=== PATIENT | female | born 1975 | race Hispanic/Latino ===

== ENCOUNTER 2018-04-21 14:02 | Emergency (ER) | payer OTHER ==
[2018-04-21] MEDS ORDERED: Naproxen 500 MG TAB PO STA (14:26)
--- NOTE | 2018-04-21 14:29 | ED PDOC ---
Lower Extremity Pain/Injury Time Seen by Provider: 04/21/18 14:15 Chief Complaint (Nursing): Lower Extremity Problem/Injury Chief Complaint (Provider): Left knee pain History Per: Patient History/Exam Limitations: no limitations Onset/Duration Of Symptoms: Hrs (12x hours) Current Symptoms Are (Timing): Still Present Additional Complaint(s): 43 year old female with no past medical history presents to the ED for an evaluation of left knee pain since last night, as if something "popped". Patient denies taking medication for the pain. Otherwise: (-) previous injuries or surgeries to left knee, (-) associated symptoms, (-) fever, (-) falls, (-) trauma (-) foot swelling (-) calf tenderness (-) use of hormonal therapy (-) FHx of blood clot (-) prolonged immobolity (-) chest pain (-) cough/SOB. Last menstrual period: 03/28/2018. PMD: Unsure of name. Past Medical History Reviewed: Historical Data, Nursing Documentation, Vital Signs Vital Signs: Last Vital Signs Temp 98.6 F 04/21/18 14:11 Pulse 55 L 04/21/18 14:11 Resp 16 04/21/18 14:11 BP 136/73 04/21/18 14:11 Pulse Ox 100 04/21/18 14:11 - Medical History PMH: No Chronic Diseases - Surgical History Surgical History: No Surg Hx - Family History Family History: States: No Known Family Hx - Social History Current smoker - smoking cessation education provided: No Drugs: Denies - Home Medications Home Medications: Ambulatory Orders Medication Instructions Recorded RX: Naproxen 500 mg PO BID PRN #20 tab 04/21/18 - Allergies Allergies/Adverse Reactions: Allergies Allergy/AdvReac Type Severity Reaction Status Date / Time No Known Allergies Allergy Verified 04/21/18 14:11 Wells Criteria for PE - Wells Criteria for Pulmonary Embolism Clinical Signs and Symptoms of DVT: No P.E is #1 Diagnosis, or Equally Likely: No Heart Rate >100: No Immobilization at least 3 days;Surgery previous 4 weeks: No Previous, objectively diagnosed PE or DVT: No Hemoptysis: No Malignancy w/treatment within 6 months, or palliative: No Total Score: 0 Review of Systems ROS Statement: Except As Marked, All Systems Reviewed And Found Negative Musculoskeletal: Positive for: Other (left knee pain) Physical Exam - Reviewed Nursing Documentation Reviewed: Yes Vital Signs Reviewed: Yes - Physical Exam Comments: GENERAL APPEARANCE: Patient is awake, alert, oriented x 3, in no acute distress. Ambulatory in ED with a steady, unassisted gait. SKIN: Warm, dry; (-) cyanosis. ENT: Mucus membranes moist. Airway patent, (-) stridor. LOWER EXTREMITY: Left knee: (+) full ROM of knee, (+) tenderness to lateral aspect of left knee and left lateral proximal lower extremity (-) anterior and posterior draw sign (-) instability on valgus or varus stress, (-) calf tenderness, erythema, or warmth (-) palpable cord (-) pedal edema. Remainder of lower extremity nontender with full ROM. Achilles tendon intact and nontender. HEART AND CARDIOVASCULAR: (-) irregularity CHEST AND RESPIRATORY: (-) rales, (-) rhonchi, (-) wheezes; breath sounds equal. Respirations even and nonlabored. NEUROLOGIC: (+) distal sensation. - ECG O2 Sat by Pulse Oximetry: 100 (RA) Pulse Ox Interpretation: Normal Medical Decision Making Medical Decision Makin:15 Clinical impression: 43 year old female with acute knee pain Initial plan: * XRay knee left 3 views * naproxen 500 mg PO * reevaluation 1510 XR reviewed, radiology report follows Date of service: 04/21/2018 PROCEDURE: Left Knee Radiographs. HISTORY: Pain. COMPARISON: None. FINDINGS: BONES: No evidence of acute displaced fracture nor dislocation. The osseous structures appear intact. JOINTS: Joint spaces relatively preserved with no significant osteoarthritis. JOINT EFFUSION: Suspect trace suprapatellar joint effusion OTHER FINDINGS: None. IMPRESSION: No acute fractures. Suspect trace joint effusion. On exam, patient remains AAOx3, in no acute distress. Gait steady in ED. Vitals stable. Lab/Diagnostic results d/w the patient in great detail. Diagnosis of acute knee pain d/w the patient. RICE encouraged. Based on history, exam and diagnostic results, plan will be for outpatient follow up. Patient instructed to follow-up with pmd / referral provided / the clinic in 1- 2 days without fail. Advised to take medication as prescribed. Return to the emergency room at any time for any new or worsening symptoms. Patient states she fully agrees with and understands discharge instructions. States that she agrees with the plan and disposition. Verbalized and repeated discharge instructions and plan. I have given the patient opportunity to ask any additional questions. 16:10 Upon discharge, patient is refusing to sign paperwork and is requesting an ultrasound evaluation and a second opinion by another provider. Patient seen and examined by , reassured about imaging and physical exam. Patient discharged without further incident. Scribe Attestation: Documented byCarmella Pelletier, acting as a scribe for Carmella Alvarado. Provider Scribe Attestation: All medical record entries made by the Scribe were at my direction and personally dictated by me. I have reviewed the chart and agree that the record accurately reflects my personal performance of the history, physical exam, medical decision making, and the department course for this patient. I have also personally directed, reviewed, and agree with the discharge instructions and disposition. Disposition - Clinical Impression Clinical Impression: Knee pain, acute - Patient ED Disposition Is Patient to be Admitted: No Counseled Patient/Family Regarding: Studies Performed, Diagnosis, Need For Followup, Rx Given - Disposition Referrals: Victor Manuel Rodriguez III, MD [Staff Provider] - [facility] [Outside] Disposition: Routine/Home Disposition Time: 15:25 Condition: STABLE Additional Instructions: The emergency medical care you received today was directed at your acute symptoms. If you were prescribed any medication, please fill it and take as directed. It may take several days for your symptoms to resolve. Return to the Emergency Department if your symptoms worsen, do not improve, or if you have any other problems. Please contact your doctor in 2 days for re-evaluation and follow up / or call one of the physicians/clinics you have been referred to that are listed on the Patient Visit Information form that is included in your discharge packet. Bring any paperwork you were given at discharge with you along with any medications you are taking to your follow up visit. Our treatment cannot replace ongoing medical care by a primary care provider (PCP) outside of the emergency department. Prescriptions: RX: Naproxen 500 mg PO BID PRN #20 tab PRN Reason: Pain, Moderate (4-7) Instructions: Joint Pain, Knee Pain Forms: [employer] (Tristanian) Print Language: L[place]ISH - POA Present On Arrival: None
[2018-04-21] MEDS ORDERED: Naproxen 500 MG TAB PO ONE (14:42)
--- NOTE | 2018-04-21 15:12 | RAD ---
Date of service: 04/21/2018 PROCEDURE: Left Knee Radiographs. HISTORY: Pain. COMPARISON: None. FINDINGS: BONES: No evidence of acute displaced fracture nor dislocation. The osseous structures appear intact. JOINTS: Joint spaces relatively preserved with no significant osteoarthritis. JOINT EFFUSION: Suspect trace suprapatellar joint effusion OTHER FINDINGS: None. IMPRESSION: No acute fractures. Suspect trace joint effusion.
[2018-04-21 16:40] VITALS: BP 130/72; PULSE 68; RESP 18; TEMP 98
[2018-04-21 18:03] VITALS: O2SAT 100
== END 2018-04-21 16:39 | disposition home or self-care (01) ==
LOC: H.ER 14:02
DX: M25.562 Pain in left knee (principal)